=== PATIENT | female | born 1980 | race Caucasian/White ===

== ENCOUNTER 2020-10-21 05:03 | Inpatient (IN) | payer OTHER, SELFPAY ==
[2020-10-21] VITALS (99 sets, daily range): BP systolic 69–135; BP diastolic 43–103; PULSE 60–193; RESP 16; TEMP 36.4–37.1; O2SAT 87–100; BMI 37.4
--- NOTE | 2020-10-21 05:03 | LDADM ---
This patient, Efrem Che, was admitted to Labor/Delivery/Recovery 103 on 10/21/20 at 05:03. Plans for labor, pain management and were discussed with patient. Patient/family oriented to hospital policies and general routines including ID bracelet, bed and alarms, visiting hours, pain management, procedures, bathroom and other care routines, personal items, smoking policy, room service/diet and guest tray routines, security routines, and visiting hours. Patient/Family are encouraged to report perceived risks to care and to ask questions if they do not understand what they are told or what they should do. See OBIX for further documentation.
[2020-10-21 05:56] LABS: Basophils Absolute Auto 0.1 K/mm3 (0.0-0.1); Basophils Percent Auto 0.5 % (0.2-1.2); Eosinophils Absolute Auto 0.2 K/mm3 (0-0.3); Eosinophils Percent Auto 2.5 % (0-4.4); Hematocrit 29.1 % (37.0-47.0); Hemoglobin 9.3 g/dL (12.0-15.0); Immature Granulocyte Absolute 0.09 K/mm3 (0.00-0.031); Immature Granulocyte Percent A 0.9 % (0-0.5); Lymphocytes Absolute Auto 1.61 K/mm3 (0.9-3.2); Lymphocytes Percent Auto 16.7 % (18.3-44.2); Mean Corpuscular Hemoglobin 27.5 pg (26-34); Mean Corpuscular Volume 86.1 fl (80-100); Mean Platelet Volume 9.9 fl (7.4-10.4); Monocytes Absolute Auto 0.8 K/mm3 (0.1-0.6); Monocytes Percent Auto 8.3 % (2.6-8.5); Neutrophils Absolute Auto 6.9 K/mm3 (1.3-6.7); Neutrophils Percent Auto 71.1 % (45.5-73.1); Platelet Count Result 289 k/mm3 (150-375); Red Blood Count 3.38 M/mm3 (4.2-5.4); White Blood Count 9.6 K/mm3 (4.5-10.0)
[2020-10-21] MEDS: OXYTOCIN 30 UNITS/NS 500 ML 30 UNITS/500 ML BAG IV CONT (06:00)
[2020-10-21] MEDS: LACTATED RINGERS 1,000 ML 125 ML IV CONT ×2 (06:00→08:32)
[2020-10-21] MEDS: AMPICILLIN 2 GM/NS 100 ML 2 GM/100 ML BAG IVPB (06:00)
--- NOTE | 2020-10-21 08:35 | WPDOBADMIT ---
Obstetrics - Admit Note Admission Note: record reviewed. Additions to the history and/or subsequent changes in the physical findings follow. 40 y/o at 40 1/7 weeks here for induction of labor. GBS pos. AVSS NST reactive TOCO: contractions irregularly ABD soft, nontender, gravid, vertex EXT nontender Cervix 3-4/50/-2. AROM with clear fluid. Vertex. A: IUP at term with favorable cervix, desiring induction of labor. GBS pos. P: Oxytocin. Ampicillin. Anticipate .
--- NOTE | 2020-10-21 09:36 | WPDANESEPP ---
Anes - Eval Pre Procedure Procedure: labor epidural Date/Time: 10/21/20 09:36 Surgeon: Brit Preop Diagnosis: labor pain Pre Op Diagnosis: IOL Patient Data Age: 40 Gender: F Height: 1.63 m Weight: 99 kg Last Vital Signs Temp 36.4 C 10/21/20 05:59 Pulse 77 10/21/20 09:31 BP 106/49 L 10/21/20 09:31 Pulse Ox 96 10/21/20 09:32 Allergies Allergy/AdvReac Type Severity Reaction Status Date / Time No Known Allergies Allergy Verified 02/07/19 12:35 Home Medications Medication Instructions Recorded Confirmed Type albuterol sulfate 90 mcg/actuation 1 puff INHALATION Q4H PRN 10/03/19 10/10/20 History aerosol inhaler fluticasone 250 mcg-salmeterol 50 1 inhalation INHALATION ONCE 10/03/19 10/21/20 History mcg/dose blistr powdr for inhalation PNV cmb#95-ferrous fumarate-FA 1 tablet PO DAILY 10/10/20 10/10/20 History [] Laboratory Tests 10/21/20 10/21/20 10/21/20 05:30 05:30 05:30 WBC 9.6 K/mm3 K/mm3 (4.5-10.0) RBC 3.38 M/mm3 L M/mm3 (4.2-5.4) Hgb 9.3 g/dL L g/dL (12.0-15.0) Hct 29.1 % L % (37.0-47.0) MCV 86.1 fl fl (80-100) MCH 27.5 pg pg (26-34) MCHC 32.0 g/dl g/dl (32-36) RDW 14.0 % % (11.5-14.5) Plt Count 289 k/mm3 k/mm3 (150-375) MPV 9.9 fl fl (7.4-10.4) Immature Gran % (Auto) 0.9 % H % (0-0.5) Neut % (Auto) 71.1 % % (45.5-73.1) Lymph % (Auto) 16.7 % L % (18.3-44.2) [place] % (Auto) 8.3 % % (2.6-8.5) Eos % (Auto) 2.5 % % (0-4.4) Baso % (Auto) 0.5 % % (0.2-1.2) Lymph # (Auto) 1.61 K/mm3 K/mm3 (0.9-3.2) [place] # (Auto) 0.8 K/mm3 H K/mm3 (0.1-0.6) Eos # (Auto) 0.2 K/mm3 K/mm3 (0-0.3) Baso # (Auto) 0.1 K/mm3 K/mm3 (0.0-0.1) Abs Immat Gran (auto) 0.09 K/mm3 H K/mm3 (0.00-0.031) Absolute Neuts (auto) 6.9 K/mm3 H K/mm3 (1.3-6.7) Absolute Nucleated RBC 0.0 K/mm3 K/mm3 (0.0-0.012) Nucleated RBC % 0.0 % % (0.0-0.2) RPR Pending Blood Type O Positive Antibody Screen Negative : gestational age (LETI 10/20/20) Patient hx anesthesia problems: none Family hx anesthesia problems: none [facility] [place] Past Medical History Medical History Asthma BMI 30.0-30.9,adult Encounter to establish care Gestational diabetes Herpes Mild intermittent asthma Obesity (BMI 35.0-39.9 without comorbidity) Seasonal allergies Tobacco abuse Surgical History Surgical History History of sleeve gastrectomy History of sleeve gastrectomy Family History Family History Mother Diverticulitis SVT (supraventricular tachycardia) High cholesterol Endometriosis Grandparent Diabetes mellitus Grandparent Parkinson disease Social History Social History Years smoked: 20 Smoking status: Current every day smoker Second hand tobacco smoke exposure: Yes Alcohol intake: current Substance use: never Gender identity (if verbalized by the patient): Female Spiritual care concerns: No Exam Day of Procedure 10/21/20 09:36 Patient weight: obese Heart: regular rate and rhythm Lungs: normal air movement Airway: Mallampati scale class II Neurological: alert and oriented
[2020-10-21] MEDS: AMPICILLIN 1 GM/NS 50 ML 1 GM/50 ML BAG IVPB (09:45)
[2020-10-21] MEDS: METHYLERGONOVINE MALEATE 0.2 MG/ML VIAL IM (12:08)
--- NOTE | 2020-10-21 12:09 | PM.OBPRVD ---
OB - Delivery Note Procedure Delivery date: 10/21/20 Procedure: Induction of labor with Induction method: per pitocin protocol Delivery augmentation: rupture of membranes and pitocin Delivery monitor: external FHT and external uterine Route of delivery: Laceration Description: None Specimen: Yes (cord blood) Quantitative Blood Loss (ml): 180 Anesthesia type: Epidural Disposition: PACU Complications: None Narrative: 40 y/o at 40 1/7 weeks gestation who presented to the hospital for induction of labor. Oxytocin was administered intravenously. Amniotomy was performed with return of clear fluid. She received an epidural for pain control. Her labor progressed and her cervix dilated completely. She pushed with good effort and delivered the infant's head to the perineum, followed by the body. The nose and mouth were bulb suctioned. After a delay, the cord was clamped and cut. The was handed off the field. Cord blood was collected. The placenta delivered spontaneously and was grossly normal in appearance. The usual 3 vessel cord was noted. The perineum was intact. Needle and instrument counts were correct. The patient was taken to recovery room in stable condition. The went to the nursery in stable condition. I was present and scrubbed for the entire delivery. Baby Date of : 10/21/20 Time of : 11:54 Weeks of gestation at delivery: 40 gender: Female Weight (pounds): 7 Weight (ounces): 2 presentation: vertex position: Left Occiput Anterior Placenta delivery description: Spontaneous and Normal Configuration cord vessel description: 3 Vessels and Delayed Cord Clamping score one minute: 9 score five minutes: 9
--- NOTE | 2020-10-21 12:11 | PM.OBDSVD ---
DS: Admitting Diagnosis Admitting Diagnosis IUP at 40 1/7 weeks Favorable cervix GBS colonization DS: Discharge Diagnosis Discharge Diagnosis (1) (normal spontaneous vaginal delivery): Code(s): O80 - Encounter for full-term uncomplicated delivery Status: Acute (2) GBS bacteriuria: Code(s): R82.71 - Bacteriuria Status: Acute OB - DS: Summary OB Procedures : None OB Procedures Intrapartum: Spontaneous Vag Delivery OB Procedures: : None DS: Data Data Completed and Pending Labs on day of discharge: Labs from last 24 hours 10/21/20 10/21/20 10/21/20 05:30 05:30 05:30 WBC 9.6 RBC 3.38 L Hgb 9.3 L Hct 29.1 L MCV 86.1 MCH 27.5 MCHC 32.0 RDW 14.0 Plt Count 289 MPV 9.9 Immature Gran % (Auto) 0.9 H Neut % (Auto) 71.1 Lymph % (Auto) 16.7 L [place] % (Auto) 8.3 Eos % (Auto) 2.5 Baso % (Auto) 0.5 Lymph # (Auto) 1.61 [place] # (Auto) 0.8 H Eos # (Auto) 0.2 Baso # (Auto) 0.1 Abs Immat Gran (auto) 0.09 H Absolute Neuts (auto) 6.9 H Absolute Nucleated RBC 0.0 Nucleated RBC % 0.0 RPR Pending Blood Type O Positive Antibody Screen Negative Discharge Plan Discharge Attending physician on discharge: Misael Perea Discharging Clinician: Misael Perea Patient Disposition: Home, Self-Care Activity: pelvic rest Diet: regular Discharge Instructions: Education: Mom and Baby Guide Given to: Mother Follow-Up: Call your delivering provider's office for an appointment to be seen in: 4 Weeks Mom and baby should come to the [facility] for the follow-up appointment. Appointment Date/Time: October 24, 2020 at 9:00 am What to expect at your follow-up visit: Blood Pressure Check Call [phone] if you are unable to keep your appointment time. BREAST CARE: * Wear a snug supportive bra. * For engorgement discomfort: Bottle Feeding: * May apply ice packs PERINEAL CARE * Until bleeding stops, use your courtney bottle after urinating * Change your pad frequently throughout the day * You may take sitz baths several times a day (fill your bathtub with warm water and soak for 20 minutes.) Do NOT bathe in the water * No tub baths until seen by your physician - You may shower ACTIVITY: * Rest as much as possible. * Do not exercise or lift anything heavier than your baby (such as laundry or other children.) * Avoid stairs or driving as much as possible. * Do not put anything into the vagina. No douching, tampons, or sexual activity until seen by physician. NOTIFY PHYSICIAN IF YOU HAVE ANY QUESTIONS OR IF ANY OF THE FOLLOWING SYMPTOMS OCCUR: * If your perineum becomes red, swollen, or more painful than what you have experienced in the hospital. * If your vaginal bleeding becomes foul smelling. * If your vaginal bleeding becomes more heavy than a period or if your bleeding changes from pink to bright red. However, you may pass an occasional walnut-sized clot once or twice for the first week . * If you experience a sharp, shooting pain in you calves. * If you discover a hard, reddened area on your breast or if you experience flu-like symptoms. * If you have a fever of 100.4 or greater DIET: * Eat regular, well-balanced meals. * Drink plenty of fluids daily. If , drink to thirst.Call or return if temperature above 100.4? F, increased abdominal pain, increased vaginal bleeding or any new problems. Patient Instructions: How to Stop Smoking (DC) Stand Alone Forms: General Discharge Information Follow-up/Referrals: Misael Perea MD [Physician] - 6 Weeks Discharge Medications: New ibuprofen 600 mg tablet 600 mg PO Q6H PRN (Reason: cramps) Qty: 30 RF: 0 ferrous sulfate [Iron (ferrous sulfate)] 325 mg (65 mg iron) tablet 325 mg PO DAILY Qty: 30 RF: 0 No Action fluticasone propion-salmeterol [Ad
[2020-10-21] MEDS: OXYTOCIN 30 UNITS/NS 500 ML 30 UNITS/500 ML BAG 125 UNITS IV CONT (12:22)
[2020-10-21 12:36] LABS: Rapid Plasma Reagin Non-Reactive (NonReactive)
--- NOTE | 2020-10-21 15:35 | PC.NURSE ---
Patient transferred to post room #278 via wheelchair. Support person present. Oriented to unit, room, information board, rooming in, admission packet and security measures. Patient verbalizes understanding.
[2020-10-21] MEDS: ACETAMINOPHEN 325 MG TABLET 650 MG PO (16:00)
[2020-10-22] MEDS: ACETAMINOPHEN 325 MG TABLET 650 MG PO ×2 (00:38→09:38)
[2020-10-22] MEDS: DOCUSATE SODIUM 100 MG CAPSULE PO ×2 (00:38→09:37)
[2020-10-22] MEDS: POLYSACCHARIDE IRON COMPLEX 150 MG CAPSULE PO ×2 (00:38→09:38)
[2020-10-22 05:29] LABS: Hemoglobin 7.9 g/dL (12.0-15.0)
--- NOTE | 2020-10-22 08:00 | PC.NURSE ---
PT introductions made and plan of care discussed per post , pain management, bottle feeding, daily care activities sand pending discharge to home. PT received any instructions or education this shift via one to one discussion, demonstration, mom baby care guide. NO barriers to learning identified and pt and spouse were recipients of such instructions. PT verbalized understanding of such care.
[2020-10-22 08:50] VITALS: BP 127/76; PULSE 89; RESP 18; TEMP 36.9; O2SAT 100
[2020-10-22 09:30] VITALS: PULSE 89; RESP 18; O2SAT 100
--- NOTE | 2020-10-22 10:44 | WPDANLDPN2 ---
Anes-Prog Note L&D Date/Time: 10/22/20 10:44 Comfortable throughout: labor and delivery Neuraxial method: epidural Epidural/Spinal procedure site: clean & non-tender Neuro status: Neuro function grossly intact. Cardiovascular status: normal Respiratory status: normal Airway patency: baseline Mental status: baseline Post-Op hydration status: normal Vital Signs: Last Vital Signs Temp 36.9 C 10/22/20 08:50 Pulse 89 10/22/20 08:50 Resp 18 10/22/20 08:50 BP 127/76 10/22/20 08:50 Pulse Ox 100 10/22/20 08:50 Pain score (VAS): 03/30 Post-procedural complaints: none Patient feedback: Patient satisfied with anesthetic care.
--- NOTE | 2020-10-22 14:49 | PM.OBPNVD ---
OB - PN: Subj Subjective Date/time seen: 10/22/20 14:49 Narrative: Pain OK. Would like to go home. OB - PN: Obj Data Labs CBC & Chem 7: 10/22/20 05:20 Labs: Laboratory Results - last 24 hr 10/22/20 05:20 Hgb 7.9 L Hct 25.0 L OB - PN A/P Plan Comments: A: PPD#1, doing well. P: Home to f/u 6 weeks. Exam Psych: Other: AVSS ABD soft, nontender, fundus firm EXT nontender
--- NOTE | 2020-10-22 15:20 | PC.NURSE ---
PT received discharge instructions per protocol and verbalized understanding of such instructions. Patient was given the opportunity to view the discharge video Mother & Baby Care, The First Two Weeks and to ask questions. Patient declined viewing the video and has been given the mother/baby guide for home reference.
[2020-10-24 09:30] VITALS: BP 112/64; PULSE 79; RESP 16; TEMP 36.8; O2SAT 100
== END 2020-10-22 15:34 | disposition home or self-care (01) | DRG 806 ==
LOC: ANHLDR 12:12 → ANHOB2 15:37
PROVIDERS: Admitting Provider Obstetrics & Gynecology; PCP Family Medicine; Visit Provider Obstetrics & Gynecology
DX: O99.824 Streptococcus B carrier state complicating childbirth (principal); O98.52 Other viral diseases complicating childbirth; Z37.0 Single live birth; B00.9 Herpesviral infection, unspecified; O99.334 Smoking (tobacco) complicating childbirth; F17.210 Nicotine dependence, cigarettes, uncomplicated; Z3A.40 40 weeks gestation of pregnancy
CPT/HCPCS: 36415; 85014; 85018; 85025; 86592; 86850; 86900; 86901; A9270; J0290; J2210; J2590; J2795; J7120